=== PATIENT | female | born 1995 | race Caucasian/White ===

== ENCOUNTER 2022-05-15 23:26 | Outpatient (CLI) | payer MEDICAID, SELFPAY ==
[2022-05-15 23:48] VITALS: BP 127/62; PULSE 115
[2022-05-15 23:49] VITALS: RESP 18; TEMP 37.4; O2SAT 97
--- NOTE | 2022-05-16 01:38 | PC.OBNST ---
NST Note NST Note Start: 05/15/22 23:32 Freq: ONCE Status: Discharge Protocol: Document 05/16/22 01:25 NANCY (Rec: 05/16/22 01:37 NANCY [id number]) NST Note 4 Para (# of births) 2 EDC 06/03/22 Gestational Age In Weeks & Days 37 Weeks & 3 Days Patient Presented with Complaint(s) of Contractions/cramping Reactive Yes Appropriate for Gestational Age Yes RN Edil Servin, RNC Date 05/16/22 Reactive Yes Appropriate for Gestational Age Yes ADE Siegel, RN Date 05/16/22 OB NST charge Yes Complete NST Note via Write Note Yes The provider's electronic signature indicates the NST is reactive/appropriate for gestational age. *Note to provider: If an addendum is required, open the patient's chart and click on the note under the Nurse/Allied Health tab.
== END 2022-05-16 01:29 | disposition home or self-care (01) ==
LOC: OB OUT 23:27 → OB 23:27
PROVIDERS: Visit Provider Family Medicine
DX: O47.1 False labor at or after 37 completed weeks of gestation (principal); Z3A.37 37 weeks gestation of pregnancy
CPT/HCPCS: 59025; 99213

== ENCOUNTER 2022-05-29 07:19 | Inpatient (IN) | payer MEDICAID, SELFPAY ==
[2022-05-29] VITALS (29 sets, daily range): BP systolic 114–144; BP diastolic 58–84; PULSE 80–117; RESP 16–20; TEMP 36.6–37; O2SAT 90–100; BMI 34.9
[2022-05-29 07:55] LABS: SARS Antigen* negative (Negative)
[2022-05-29] MEDS: miSOPROStoL 25 MCG/0.25 TABLET PO ×4 (08:21→14:29)
--- NOTE | 2022-05-29 17:19 | P.OBHP_ITS ---
OB - H&P: HPI Labor/Induction History of Present Illness Time Seen by Provider: 17:19 Date Seen: 05/29/22 Chief Complaint: The patient is a 26 year old 4 para 2011 at 39+2 weeks gestation by 16w US , who presents for elective IOL. Chief complaint: Maternity : 4 Para: 2 Date of last menstrual period: 09/01/21 Estimated date of delivery: 06/08/22 Gestational age based on last menstrual period: 38 Narrative: Virginie Campos is a 26 year old female at 39w2d based on 16 wk US who present for elective IOL. complicated by covid 19 infection in the 3rd trimester. History of maternal depression, but mood has been stable off medication. On admission, cervical exam was 3/50/-3. Patient received 4 doses of oral cytotec. She has had increasing frequency and intensity of contractions. Found to be 4.5/60/-2 at 1630. Requesting AROM. Coping well. History of Present Dating criteria: other (early second trimester US) care: other (Limited care in the second trimester. Good care in the third trimester.) Ultrasounds: normal mid trimester US Abnormal ultrasound findings: 20 week survey normal. EFW 46th percentile. complications comment: Covid in the late third trimester. Mild sx. Labs Blood type: O (+) positive Rubella: immune RPR/VDLR: nonreactive GBS status: negative HBsAG: negative Review of Systems Status of ROS: Reports: 10 or more systems reviewed and unremarkable except as noted in History and below Meds Home Medications and Allergies Home Medications Medication Instructions Recorded Confirmed Type No Known Home Medications 05/15/22 05/29/22 History Allergies Allergy/AdvReac Type Severity Reaction Status Date / Time No Known Drug Allergies Allergy Verified 05/15/22 23:38 OB - H&P: Exam Physical Exam: Vital signs: Temp Pulse Resp BP Pulse Ox 98.4 F 85 16 120/73 97 05/29/22 16:25 05/29/22 16:25 05/29/22 16:25 05/29/22 16:25 05/29/22 16:25 Narrative: General appearance: Well-appearing adult female. Alert, oriented and appropriate. Sitting up in hospital bed. HEENT: EOMI, no conjunctival injection or discharge. MMM. Neck: Supple. CV: RRR, no rubs, murmurs or extra heart sounds. Pulm: CTAB, no wheezes, rales or rhonchi. Abdomen: Gravid. Soft. MSK: Moving all extremities. Ext: Warm and well-perfused. No LE edema. Skin: No rashes appreciated over exposed skin. Neuro: Grossly normal strength and sensation. No focal deficits. Psych: Normal affect. Detailed Labor and Delivery Exam: Dilation (cm): 4 Effacement (%): 70 Cervix position: anterior Consistency: soft Contraction frequency (min): 2 Contraction intensity: Moderate Fetus (Single): Amniotic Membrane Status: AROM Amniotic Membrane Fluid Desc ription: Meconium Stained Heart Rate Baseline: 135 Monitor Accelerations: Present Monitor Decelerations: None Tape Coater Variability: Moderate (6-25) OB - Problem Based A/P Additional Plan (1) Term : Status: Acute (2) Meconium in amniotic fluid: Status: Acute Plan - AROM for thick meconium stained fluid. Plan peds support for delivery - GBS negative - Appropriate labor progress. Expectant management. Anticipate vaginal delivery
[2022-05-29] MEDS: LACTATED RINGERS 1000 ML 1,000 ML 1200 ML IV (18:05)
[2022-05-29 18:13] LABS: Basophils Absolute Auto 0.03 K/uL (0.00-0.30); Basophils Percent Auto 0.4 % (0.0-3.0); Eosinophils Absolute Auto 0.04 K/uL (0.00-0.50); Eosinophils Percent Auto 0.5 % (0.0-7.0); Hematocrit 33.7 % (33.0-51.0); Immature Granulocytes Abs Auto 0.12 K/uL (0.00-0.30); Immature Granulocytes Pct Auto 1.4 %; Lymphocytes Percent Auto 12.2 % (20-44); Mean Corpuscular HGB Conc 33 gm/dL (32-36); Mean Corpuscular Hemoglobin 28 pg (26-34); Mean Corpuscular Volume 87 fL (80-100); Monocytes Percent Auto 10.6 % (0.0-11.0); Neutrophils Percent Auto 74.9 % (42.0-72.0); Platelet Count* 352 K/uL (140-440); Red Blood Count 3.89 m/uL (4.00-5.20); White Blood Count* 8.38 K/uL (4.50-11.00)
[2022-05-29 18:22] LABS: Slide Review Reflex No
--- NOTE | 2022-05-29 18:37 | PM.ANBPRC ---
PFSH PFS Social History Smoking Status: Never smoker Meds Home Medications and Allergies Home Medications Medication Instructions Recorded Confirmed Type No Known Home Medications 05/15/22 05/29/22 History Allergies Allergy/AdvReac Type Severity Reaction Status Date / Time No Known Drug Allergies Allergy Verified 05/15/22 23:38 Results Labs Labs: Laboratory Results - last 24 hr 05/29/22 05/29/22 07:22 18:05 WBC 8.38 RBC 3.89 L Hgb 11.0 L Hct 33.7 MCV 87 MCH 28 MCHC 33 RDW Coeff of Bianca 14.0 Plt Count 352 Neut % (Auto) 74.9 H Lymph % (Auto) 12.2 L [place] % (Auto) 10.6 Eos % (Auto) 0.5 Baso % (Auto) 0.4 Neut # (Auto) 6.30 Lymph # (Auto) 1.00 [place] # (Auto) 0.90 Eos # (Auto) 0.04 Baso # (Auto) 0.03 SARS-CoV-2 Ag (Rapid) negative Vital Signs Vital Signs: Last Vital Signs Temp 97.9 F 05/29/22 17:21 Pulse 82 05/29/22 17:21 Resp 16 05/29/22 17:21 BP 133/82 05/29/22 17:21 Pulse Ox 100 05/29/22 18:25 Weight: 89.494 kg Height: 160.02 cm Anesthesia Procedures Epidural Insertion Patient Location: OB Start Time: 17:40 Stop Time: 18:40 Start Date: 05/29/22 Stop Date: 05/29/22 Reason for Block: primary anesthetic Patient Position: sitting Performed By: Hima Barney Preanesthetic Checklist: IV checked, risks and benefits discussed, surgical consent, monitors and equipment checked, pre-op evaluation, timeout performed and anesthesia consent Prep: chlorhexidine gluconate Monitoring: blood pressure monitoring, teletypesetter monitor, continuous pulse oximetry and heart rate Approach: midline Vertebral Space: lumbar (1-5) Needle Type: Tuohy needle Injection Technique: continuous catheter Needle gauge: 17 Needle Length (cm): 10 cm Needle Insertion Depth (cm): 6 Catheter Gauge: 19 Catheter Type: multi-orifice Catheter at skin depth (cm): 12 Test Dose Result: negative and lidocaine 1.5% with epinephrine 1 to 200,000 Events: other
--- NOTE | 2022-05-29 18:58 | W.PM.OBVAGDE ---
OB Procedure Vag Delivery Mother Details Mother Details: The patient is a 26 year-old, 4, Para 2, admitted on 05/29/22 at 39+2 Days gestation. : 4 Para: 2 Weeks Gestation: 39.2 Admission Date: 05/29/22 Additional Details Amniotic Membrane Status: AROM Amniotic Membrane Rupture Date: 05/29/22 Amniotic Membrane Rupture Time: 17:12 Amniotic Membrane Fluid Description: Meconium Stained Analgesia/Anesthesia Type: Epidural (Epidural catheter was placed, but patient only received test dose prior to precipitous delivery) Waterbirth: No Pitcoin: Yes Intrapartal Events: Labor Augmentation (AROM), Labor Induction (Oral cytotec x4) and Mod/Heavy Meconium Fluid Induction Method: per misoprostol protocol Delivery augmentation: rupture of membranes Labor Onset: 17:12 Delivery Details Delivery Date: 05/29/22 Delivery Time: 19:01 Route of delivery: Infant Gender: Female Infant Viability: Alive; Heart Rate Present Delivery Details: Patient requested epidural. Per nursing, this was in progress, catheter was placed and patient had received test dose only when she reported need to push. She was checked and found to be complete. Delivered over intact perineum via spontaneous vaginal by nurse at 1832. Per report, infant was vigorous, crying, placed on maternal chest. MD arrived approximately 5 minutes after delivery. Placenta was delivered by MD. Additional Details Shoulder Dystocia: No Placenta Delivery Time: 18:42 Placental Delivery Description: Spontaneous Blood Loss: 200 Laceration: Periurethral - 1st Degree Episiotomy Description: None Blood Loss Measurement Type: QBL Bakri Used: No Sponge/Need Count Correct: Yes Cord Vessel Description: 3 Vessels Event Summary Status: Mother and infant were stable after delivery.
[2022-05-30 01:53] VITALS: BP 122/80; PULSE 83; RESP 16; TEMP 36.3; O2SAT 99
[2022-05-30] MEDS: IBUPROFEN 600 MG TABLET PO (02:00)
[2022-05-30 04:59] VITALS: BP 130/74; PULSE 80; RESP 16; TEMP 36.5; O2SAT 99
[2022-05-30 07:31] LABS: Hemoglobin* 9.4 gm/dL (12.0-16.0)
[2022-05-30 07:37] VITALS: BP 129/76; PULSE 71; RESP 16; TEMP 36.6; O2SAT 98
--- NOTE | 2022-05-30 07:44 | P.DS_ITS ---
DS: Providers Provider Date Seen: 05/30/22 Date of admission: 05/29/22 07:19 Primary care physician: Not a Local Provider Admitting Clinician: Aracelis Miramontes MD Attending Physician on discharge: Aracelis Miramontes MD Date of Discharge: 05/30/22 DS: Diagnosis Discharge Diagnosis (1) Vaginal delivery: Status: Acute Exam Const: Vital Signs, click to edit/add: Vital Signs - 24 hr 05/29/22 10:12 05/29/22 10:14 05/29/22 10:12 Temperature 98.3 F Pulse Rate 96 87 Pulse Rate [Blood Pressure Cuff] Respiratory Rate 16 Blood Pressure 144/66 H 127/65 Blood Pressure [Le ft Arm] Pulse Oximetry 96 Oxygen Delivery Me thod 05/29/22 12:06 05/29/22 12:07 05/29/22 12:07 Temperature 97.9 F Pulse Rate 91 Pulse Rate [Blood Pressure Cuff] Respiratory Rate 16 Blood Pressure 117/69 Blood Pressure [Le ft Arm] Pulse Oximetry 97 Oxygen Delivery Me thod 05/29/22 14:07 05/29/22 14:07 05/29/22 14:10 Temperature 98.6 F Pulse Rate 100 Pulse Rate [Blood Pressure Cuff] Respiratory Rate 16 Blood Pressure 126/68 Blood Pressure [Le ft Arm] Pulse Oximetry 97 Oxygen Delivery Me thod 05/29/22 16:25 05/29/22 16:25 05/29/22 17:21 Temperature 98.4 F Pulse Rate 85 82 Pulse Rate [Blood Pressure Cuff] Respiratory Rate 16 Blood Pressure 120/73 133/82 Blood Pressure [Le ft Arm] Pulse Oximetry 97 99 Oxygen Delivery Me thod 05/29/22 17:21 05/29/22 18:15 05/29/22 18:20 Temperature 97.9 F Pulse Rate Pulse Rate [Blood Pressure Cuff] Respiratory Rate 16 Blood Pressure Blood Pressure [Le ft Arm] Pulse Oximetry 100 100 Oxygen Delivery Me thod 05/29/22 18:24 05/29/22 18:25 05/29/22 18:44 Temperature Pulse Rate 93 Pulse Rate [Blood Pressure Cuff] Respiratory Rate Blood Pressure 129/58 L Blood Pressure [Le ft Arm] Pulse Oximetry 90 100 Oxygen Delivery Me thod 05/29/22 19:02 05/29/22 19:14 05/29/22 19:29 Temperature Pulse Rate 86 91 90 Pulse Rate [Blood Pressure Cuff] Respiratory Rate 16 Blood Pressure 132/75 129/78 127/78 Blood Pressure [Le ft Arm] Pulse Oximetry Oxygen Delivery Me thod 05/29/22 19:44 05/29/22 19:59 05/29/22 20:14 Temperature Pulse Rate 89 94 Pulse Rate [Blood Pressure Cuff] Respiratory Rate 20 Blood Pressure 127/79 120/82 127/84 Blood Pressure [Le ft Arm] Pulse Oximetry Oxygen Delivery Me thod 05/29/22 18:44 05/29/22 18:56 05/29/22 19:15 Temperature 97.8 F 98.3 F Pulse Rate Pulse Rate [Blood Pressure Cuff] 93 86 91 Respiratory Rate 18 18 18 Blood Pressure Blood Pressure [Le ft Arm] 129/58 L 132/75 129/78 Pulse Oximetry Oxygen Delivery Me thod 05/29/22 19:30 05/29/22 19:45 05/29/22 20:30 Temperature 98.5 F Pulse Rate Pulse Rate [Blood Pressure Cuff] 90 98 94 Respiratory Rate 16 16 20 Blood Pressure Blood Pressure [Le ft Arm] 127/78 127/79 127/84 Pulse Oximetry 99 Oxygen Delivery Me thod Room Air 05/30/22 01:53 05/29/22 20:00 05/29/22 20:15 Temperature 97.4 F L Pulse Rate Pulse Rate [Blood Pressure Cuff] 83 98 98 Respiratory Rate 16 16 16 Blood Pressure Blood Pressure [Le ft Arm] 122/80 Pulse Oximetry 99 Oxygen Delivery Me thod Room Air 05/29/22 20:30 05/30/22 04:59 05/30/22 07:37 Temperature 97.7 F 98 F Pulse Rate Pulse Rate [Blood Pressure Cuff] 98 80 71 Respiratory Rate 16 16 16 Blood Pressure Blood Pressure [Le ft Arm] 130/74 129/76 Pulse Oximetry 99 98 Oxygen Delivery Me thod Room Air Room Air Documenting provider has reviewed patient's vital signs: yes Common normals: no apparent distress and oriented x3 GI: Common normals: soft to palpation and non-tender Palpation: soft Other: Uterus firm 2 cm below umbilicus Neuro: Common normals: oriented x3 OB - DS: Summary Hospital Course Hospital Course: The patient is a 26 year old G 4 P 2012 at 39+2 weeks gestation that was admitted to the Center on 05/29/22 for elective induction at term. She had an uncomplicated vaginal delivery. She rapidly dilated from 4 cm to complete and delivered by RN prior to arrival of MD. She delivered a viable female . She is breast feeding. the patient has done well. Peripartum Data delivery method: Vaginal Laceration description: Periurethral - 1st Degree complications: none Infant Gender: Female Discharge Plan: Home Status at Discharge Functional status at discharge: independent ambulation Overall status at discharge: patient is progressing back to baseline Time Spent with Patient Time attestation: Total time spent providing and/or coordinating discharge services: Time spent: Less than 30 minutes Discharge Plan Discharge Disposition: Home, Self-Care Date of Admission: 05/29/22 07:19 Primary Care Provider: Provider,Not a Local Condition: Improved Anticipated Discharge Date/Time: 05/30/22 18:00 Discharge Medications: No Action No Known Home Medications Discharge Orders: Discharge Order (Routine); Ordered 05/30/22 Ordered By: Sunita Rodgers Patient Education: OB Vaginal/Breast Feeding Activity Level: No Restrictions Activity Detail: nothing per vagina x6 weeks (no tampons, no intercourse) Discharge Diet: Regular Follow Up Appointments: Provider,Not a Local [Primary Care Provider] - (schedule a [address] Miramontes. If history of depression/anxiety please also schedule a [address] Miramontes. ) Forms: [employer] Info Instructions
[2022-05-30 11:51] VITALS: BP 136/78; PULSE 90; RESP 16; TEMP 36.6; O2SAT 97
[2022-05-30 15:35] VITALS: BP 127/84; PULSE 88; RESP 16; TEMP 36.6; O2SAT 98
[2022-05-30] MEDS: ACETAMINOPHEN 500 MG TABLET 1000 MG PO (15:44)
== END 2022-05-30 20:24 | disposition home or self-care (01) | DRG 807 ==
PROVIDERS: Admitting Provider Family Medicine; Visit Provider Family Medicine
DX: O77.0 Labor and delivery complicated by meconium in amniotic fluid (principal); Z37.0 Single live birth; O70.0 First degree perineal laceration during delivery; Z3A.39 39 weeks gestation of pregnancy
CPT/HCPCS: 01967; 36415; 59200; 85018; 85025; 86850; 86900; 86901; 87426; A9270; J2370; J3010; J7120

== ENCOUNTER 2024-01-20 16:57 | Inpatient (IN) | payer MEDICAID, SELFPAY ==
[2024-01-20 17:39] VITALS: BMI 39.4
[2024-01-20 18:00] VITALS: BP 130/82; PULSE 78; PULSE 87; RESP 15; TEMP 36.7; O2SAT 96
[2024-01-20] MEDS: miSOPROStoL 25 MCG/0.25 TABLET PO ×3 (18:30→22:33)
[2024-01-20 19:57] LABS: Basophils Absolute Auto 0.04 K/uL (0.00-0.30); Basophils Percent Auto 0.4 % (0.0-3.0); Eosinophils Absolute Auto 0.14 K/uL (0.00-0.50); Eosinophils Percent Auto 1.5 % (0.0-7.0); Hematocrit 34.2 % (33.0-51.0); Hemoglobin* 10.9 gm/dL (12.0-16.0); Immature Granulocytes Abs Auto 0.05 K/uL (0.00-0.30); Immature Granulocytes Pct Auto 0.5 %; Lymphocytes Absolute Auto 2.08 K/uL (0.90-2.90); Lymphocytes Percent Auto 21.7 % (20-44); Mean Corpuscular HGB Conc 32 gm/dL (32-36); Mean Corpuscular Hemoglobin 28 pg (26-34); Mean Corpuscular Volume 88 fL (80-100); Monocytes Percent Auto 5.8 % (0.0-11.0); Neutrophils Absolute Auto 6.73 K/uL (1.7-7.0); Neutrophils Percent Auto 70.1 % (42.0-72.0); Platelet Count* 333 K/uL (140-440); RDW Coefficient of Variation % 14.6 % (11.5-15.5); Red Blood Count 3.91 m/uL (4.00-5.20)
[2024-01-20 20:09] LABS: Slide Review Reflex No
[2024-01-20 20:33] VITALS: BP 128/85; PULSE 83; RESP 18; TEMP 36.9
[2024-01-20 22:32] VITALS: BP 143/81; PULSE 93
[2024-01-20 22:49] VITALS: BP 131/86; PULSE 86; RESP 18; TEMP 36.6
[2024-01-21] VITALS (34 sets, daily range): BP systolic 111–151; BP diastolic 58–100; PULSE 77–130; RESP 16–18; TEMP 36.4–37.2; O2SAT 96–100
[2024-01-21] MEDS: miSOPROStoL 25 MCG/0.25 TABLET PO ×3 (00:30→05:28)
--- NOTE | 2024-01-21 08:18 | P.OBHP_ITS ---
OB - H&P: HPI Labor/Induction History of Present Illness Time Seen by Provider: 08:19 Date Seen: 01/21/24 Chief Complaint: The patient is a 28 year old 6 para 3023 at 39+2 weeks gestation by LMP c/w 10 weeks US, who presents for elective IOL. Chief complaint: Elective IOL : 6 Para: 3 Indications for induction: other (elective) Narrative: Virginie Campos is a 28 year old female at 39+2 days who presents for elective IOL. uncomplicated. GBS negative. Admitted last evening for oral cytotec. Now s/p 6 doses. 2 blood pressures in the low 140s/90s overnight, not 4 hours apart. FHT category I overnight. Feeling well this AM. She is raquel every 2-3 minutes. Starting to feel the contractions, but not breathing through. No LOF. History of Present Dating criteria: based on LMP care: good care Ultrasounds: normal 1st trimester US and normal mid trimester US Medical complications: none Labs Blood type: O (+) positive Rubella: immune RPR/VDLR: nonreactive GBS status: negative HBsAG: negative Review of Systems Status of ROS: Reports: 10 or more systems reviewed and unremarkable except as noted in History and below Meds Home Medications and Allergies Home Medications ?Medication ?Instructions ?Recorded ?Confirmed ?Type vitamin with calcium 1 tab PO DAILY 01/20/24 01/20/24 History no.72-iron 27 mg-folic acid 1 mg tablet (WesTab Plus) Allergies Allergy/AdvReac Type Severity Reaction Status Date / Time No Known Drug Allergies Allergy Verified 01/20/24 17:41 OB - H&P: Exam Physical Exam: Vital signs: Temp Pulse Resp BP Pulse Ox 98.1 F 77 18 111/58 L 97 01/21/24 05:28 01/21/24 07:20 01/21/24 05:28 01/21/24 07:20 01/21/24 07:20 Narrative: General appearance: Well-appearing adult female. Alert, oriented and appropriate. Sitting up in hospital bed. HEENT: EOMI, no conjunctival injection or discharge. MMM. Neck: Supple. CV: RRR, no rubs, murmurs or extra heart sounds. Pulm: CTAB, no wheezes, rales or rhonchi. Abdomen: Gravid. MSK: Moving all extremities. Ext: Warm and well-perfused. No LE edema. Skin: No rashes appreciated over exposed skin. Neuro: Grossly normal strength and sensation. No focal deficits. Psych: Normal affect. Detailed Labor and Delivery Exam: Dilation (cm): 4 Effacement (%): 75 Cervix position: mid Consistency: soft Contraction frequency (min): 2 Fetus (Single): Station: -2 Amniotic Membrane Status: AROM Amniotic Membrane Fluid Description: Clear Heart Rate Baseline: 135 Monitor Accelerations: Present Monitor Decelerations: Variable Care Home Variability: Moderate (6-25) OB - Results Labs Labs: Short CBC 01/20/24 Range/Units 19:50 WBC 9.60 (4.50-11.00) K/uL Hgb 10.9 L (12.0-16.0) gm/dL Hct 34.2 (33.0-51.0) % Plt Count 333 (140-440) K/uL OB - Problem Based A/P Additional Plan (1) Term : Problem details: Uncomplicated . Hx of precipitous delivery. Status: Acute Plan: - Patient agreeable to AROM for augmentation. Clear fluid - GBS negative - FHT category II. Some variable decelerations present following AROM. Overall reassuring - Expectant management. Anticipate vaginal delivery Plan -
[2024-01-21] MEDS: OXYTOCIN 10 UNIT/ML INJ IM (09:40)
[2024-01-21] MEDS: miSOPROStoL 800 MCG/4 TABLET PR (09:44)
--- NOTE | 2024-01-21 09:57 | W.PM.VAGDE_ITS ---
OB Procedure Vag Delivery Mother Details Mother Details: The patient is a 28 year-old, 6, Para 3, admitted on 01/20/24 at 39+1 Days gestation for elective IOL. Initial cervical exam 2/60%. She received oral cytotec overnight x 6 doses. Onset of regular contractions, becoming more painful around 0700. Cervix found to be 4/75/-2, head well-applied, and AROM performed at 0803 on 01/21/24 for clear fluid. head descended ~2 stations with AROM. Contractions became more intense. Early decelerations were noted. At ~0915 patient felt more pressure and requested check. Found to be 7/90/0. Deep deceleration to 70 bpm lasting 3 minutes at 0922. Recovered with repositioning to hands and knees. Patient then felt a strong urge to push at 0926. Live, vigorous male infant delivered over an intact perineum at 0928 in the OA position. There was a body cord that was delivered through. Infant was placed on the bed. Cord was cut an clamped after 30-60 second delay. was brought to the warmer while mom was repositioned. Placenta delivered spontaneously at 0933. Appeared intact, 3 vessel. No lacerations were present on exam. There was a large gush of blood prior to delivery of the placenta and several smaller gushes subsequently. Patient received IM pitocin and rectal cytotec. Fundus then palpat ed firm and bleeding appropriate. EBL 700 cc. was brought to the maternal chest. Mom and baby are now resting comfortably. : 6 Para: 3 Weeks Gestation: 39.2 Admission Date: 01/20/24 Additional Details Amniotic Membrane Status: AROM Amniotic Membrane Rupture Date: 01/21/24 Amniotic Membrane Rupture Time: 08:03 Amniotic Membrane Fluid Description: Clear Analgesia/Anesthesia Type: None Waterbirth: No Pitcoin: No Intrapartal Events: Labor Augmentation, Labor Induction and Precipitous Labor <3 Hrs Induction Method: per misoprostol protocol Delivery augmentation: rupture of membranes Labor Onset: 07:00 Pushin:26 Heart: heart tones during second stage were category II Delivery Details Delivery Date: 01/21/24 Delivery Time: 09:28 Route of delivery: Infant Gender: Male Infant Viability: Alive; Heart Rate Present Position at Delivery: OA Delivery Details: Delivered over intact perineum via spontaneous vaginal delivery. Infant was placed on the bed (mother on hands and knees).? Cord was clamped and cut after a 30-60 second delay. Nose and mouth were bulb suctioned.? Infant weight 8 lbs 5 oz. 1 Minute Interval Total Score: 8 5 Minute Interval Total Score: 9 Additional Details Shoulder Dystocia: No Placenta Delivery Time: 09:33 Placental Delivery Description: Spontaneous Procedure Done: Global Blood Loss: 700 Laceration: None Blood Loss Measurement Type: EBL Bakri Used: No Sponge/Need Count Correct: Yes Cord Vessel Description: 3 Vessels Event Summary Status: Mother and infant were stable after delivery. Disposition: floor
[2024-01-21] MEDS: LOPERAMIDE HCL 2 MG CAPSULE 4 MG PO (11:48)
[2024-01-21] MEDS: CARBOPROST TROMETHAMINE 250 MCG/ML INJ IM (11:49)
[2024-01-21] MEDS: IBUPROFEN 600 MG TABLET PO (11:57)
[2024-01-21] MEDS: LACTATED RINGERS 1000 ML 1,000 ML IV (12:36)
[2024-01-21] MEDS: ONDANSETRON 2 MG/ML inj 4 MG IV (12:52)
[2024-01-21 13:52] LABS: Hematocrit 34.4 % (33.0-51.0); Mean Corpuscular HGB Conc 32 gm/dL (32-36); Mean Corpuscular Hemoglobin 28 pg (26-34); Mean Corpuscular Volume 87 fL (80-100); Platelet Count* 379 K/uL (140-440); Red Blood Count 3.96 m/uL (4.00-5.20); White Blood Count* 21.88 K/uL (4.50-11.00)
[2024-01-21] MEDS: ACETAMINOPHEN 500 MG TABLET 1000 MG PO (13:52)
[2024-01-21 14:08] LABS: Alanine Aminotransferase* 20 U/L (4-35); Aspartate Amino Transferase* 39 U/L (12-35); Blood Urea Nitrogen* 8 mg/dL (5-24); Creatinine* 0.7 mg/dL (0.5-1.5); Est. Creatinine Clearance* 97.21; Estimated Glomerular Filt Rate 119 ml/min
[2024-01-21 14:21] LABS: Slide Review Reflex No
[2024-01-22 01:18] VITALS: BP 118/75; PULSE 94; RESP 16; TEMP 37.1; O2SAT 96
[2024-01-22 06:18] VITALS: BP 108/71; PULSE 86; RESP 16; TEMP 36.9; O2SAT 97
[2024-01-22 06:38] LABS: Hematocrit 27.2 % (33.0-51.0); Hemoglobin* 8.7 gm/dL (12.0-16.0); Mean Corpuscular HGB Conc 32 gm/dL (32-36); Mean Corpuscular Hemoglobin 28 pg (26-34); Mean Corpuscular Volume 88 fL (80-100); Platelet Count* 331 K/uL (140-440); White Blood Count* 12.55 K/uL (4.50-11.00)
[2024-01-22 06:49] LABS: Slide Review Reflex No
[2024-01-22 07:16] LABS: Alanine Aminotransferase* 17 U/L (4-35); Aspartate Amino Transferase* 39 U/L (12-35); Blood Urea Nitrogen* 6 mg/dL (5-24); Creatinine* 0.6 mg/dL (0.5-1.5); Est. Creatinine Clearance* 113.41; Estimated Glomerular Filt Rate 124 ml/min
[2024-01-22 09:25] VITALS: BP 115/70; PULSE 84; RESP 16; TEMP 36.9; O2SAT 96
--- NOTE | 2024-01-22 12:45 | PM.OBDSVD1 ---
DS: Providers Provider Date Seen: 01/22/24 Date of admission: 01/20/24 16:57 Primary care physician: Not a Local Provider Admitting Clinician: Aracelis Miramontes MD Attending Physician on discharge: Aracelis Miramontes MD DS: Diagnosis Discharge Diagnosis (1) Vaginal delivery: Status: Acute (2) anemia: Status: Acute Exam Narrative: Exam Narrative: Gen: No acute distress Ext: Warm, dry, 2+ pedal pulses, no edema bilaterally. Calves non-tender to palpation. Const: Vital Signs, click to edit/add: Vital Signs - 24 hr 01/21/24 13:13 01/21/24 13:40 01/21/24 15:39 Temperature 97.6 F 98.1 F Pulse Rate [Right Pulse Oximeter] 103 H 91 Respiratory Rate 18 Blood Pressure [Le ft Arm] 151/90 H 143/100 H 128/85 Pulse Oximetry 99 97 Oxygen Delivery Me thod Room Air Room Air 01/21/24 20:34 01/22/24 01:18 01/22/24 06:18 Temperature 98.9 F 98.7 F 98.4 F Pulse Rate [Right Pulse Oximeter] 93 94 86 Respiratory Rate 18 16 16 Blood Pressure [Le ft Arm] 121/72 118/75 108/71 Pulse Oximetry 96 96 97 Oxygen Delivery Me thod Room Air Room Air Room Air OB - DS: Summary Hospital Course Hospital Course: Virginie Campos is a 28 year old female at 39+2 days who presented for elective IOL with cytotec and IM pitocin. uncomplicated. GBS negative. She had an uncomplicated vaginal delivery. FHT category I. She did have a delayed PPH with EBL 700 cc, repeat hemoglobin was 8.7g/dL. Elevated blood pressures in the low 140s/90s, not 4 hours apart, labs negative for preeclampsia. Notably patient had vomiting/diarrhea after hemorrhage. She delivered a viable male . She is breast feeding. the patient has done well. [place] Infant Gender: Male Status at Discharge Functional status at discharge: independent ambulation Overall status at discharge: patient is progressing back to baseline Time Spent with Patient Time attestation: Total time spent providing and/or coordinating discharge services: Discharge Plan Discharge Disposition: Home, Self-Care Date of Admission: 01/20/24 16:57 Primary Care Provider: Provider,Not a Local Condition: Stable Anticipated Discharge Date/Time: 01/22/24 12:50 Discharge Medications: Continued WesTab Plus 27 mg iron- 1 mg tablet 1 tab PO DAILY Discharge Orders: Discharge Order (Routine); Ordered 01/22/24 Ordered By: Rachel Noel Patient Education: OB High Blood Pressure DC, OB Over the Counter Medication Information, OB Vaginal/Breast Feeding Activity Level: Activity as Tolerated Discharge Diet: Regular Follow Up Appointments: Provider,Not a Local [Primary Care Provider] - Forms: [employer] Info Instructions DS:Data Additional Comments Additional comments: - anemia, recommend oral iron supplement. Could consider iron infusion. - Pelvic rest for 6 weeks (no intercourse, tampons or douching), or until one week after vaginal bleeding stops. - Daily activities for the first week should be limited to taking care of patient and her baby, and only as tolerated. - Call MD if fever > 100.4 degrees, bleeding more than 1 pad / hour, foul-smelling discharge, passage of golf-ball sized blood clots, or worsening of pain not controlled by medications. - Counseled on signs of post- depression
[2024-01-23 02:02] LABS: Rapid Plasma Reagin (RPR) Non Reactive (Non Reactive)
== END 2024-01-22 13:00 | disposition home or self-care (01) | DRG 806 ==
PROVIDERS: Surgery; Admitting Provider Family Medicine; Visit Provider Family Medicine
DX: O76 Abnormality in fetal heart rate and rhythm complicating labor and delivery (principal); D62 Acute posthemorrhagic anemia; Z37.0 Single live birth; O72.2 Delayed and secondary postpartum hemorrhage; O62.3 Precipitate labor; O90.81 Anemia of the puerperium; Z3A.39 39 weeks gestation of pregnancy
CPT/HCPCS: 36415; 59200; 82565; 84450; 84460; 84520; 85018; 85025; 85027; 86592; 86850; 86900; 86901; A9270; J2405; J2590; J7120